=== PATIENT | female | born 1945 | race Caucasian/White ===

== ENCOUNTER → 2018-01-15 | Outpatient (CLI) | payer MEDICARE, MEDICAID ==
[~2018-01-15] MED LIST: ACET500T68 PO; CALC-547 PO; CALC1TAB24 PO; CELE-1 PO; CETY454C2 TP; CLO30T TOP; DEXL60CA6 PO; DOC100 PO; GUAI118L21 PO; LEVO100T95 PO; LOPE-147 PO; LOR5/325 PO; NAPR-1043 PO; OMEP-218 PO; POLPT TP; SALSP; [UNRECOGNIZED DRUG - CODE] TP
--- NOTE | 2018-01-15 11:05 | RADIOLOGY IMAGING REPORT ---
FACILITY: [facility] PATIENT NAME: Courtney Baker : 1945 MR: [id number] V: [id number] EXAM DATE: ORDERING PHYSICIAN: NNAMDI KIRKPATRICK TECHNOLOGIST: Location: [facility] [place] Patient: Courtney Baker : 1945 Visit/Account:[id number] Date of Sevice: 01/15/2018 Study: LUMBAR SPINE 4 VIEWS Indication: Pain Comparison study: October 01, 2016 Findings: AP bilateral oblique, lateral, and cone-down lateral views of the lumbosacral spine demonst rates the presence of mild loss of height of the L1 vertebral body. This is unchanged as compared to the previous study. There is no evidence of lytic or blastic bony lesions. There is mild degenerative disease present. There is no evidence of spondylolisthesis or spondylolysis. IMPRESSION: Mild degenerative disease. There is no evidence of acute bony abnormality. Report Dictated By: David Osorio at 01/15/2018 10:59 AM Report E-Signed By: David Osorio at 01/15/2018 11:00 AM WSN:[id number]
== END ==
LOC: RAD 09:42
PROVIDERS: ATTEND Nurse Practitioner Family
DX: M51.36 Other intervertebral disc degeneration, lumbar region (principal)
CPT/HCPCS: 72120

== ENCOUNTER → 2018-05-25 | Outpatient (CLI) | payer MEDICARE, MEDICAID ==
--- NOTE | 2018-05-25 15:13 | RADIOLOGY IMAGING REPORT ---
[place] [facility] [place] NAME: Courtney Baker : 1945 MR: [id number] V: [id number] EXAM DATE: ORDERING PHYSICIAN: ADAM MUNOZ TECHNOLOGIST: Location: [facility] Patient: Courtney Baker : 1945 Visit/Account:[id number] Date of Sevice: 05/25/2018 Exam type: CHEST PA AND LAT History: Choking when eating, cough Comparison: None. Findings: There is a moderate size hiatal hernia projecting in the retrocardiac space. Peribronchial thickenin g is noted in the lower lung ott. No evidence of pleural effusions or overt pulmonary edema. The cardiac silhouette is mildly enlarged IMPRESSION: 1. Moderate size hiatal hernia Peribronchial thickening in the lower lung ott. Different diagnosis would include both acute and chronic etiologies Mild cardiomegaly Report Dictated By: Becky Lane MD at 05/25/2018 3:05 PM Report E-Signed By: Becky Lane MD at 05/25/2018 3:08 PM WSN:[email or web address]
== END ==
LOC: RAD 10:32
PROVIDERS: ATTEND Nurse Practitioner Family
DX: K44.9 Diaphragmatic hernia without obstruction or gangrene (principal); R91.8 Other nonspecific abnormal finding of lung field; I51.7 Cardiomegaly
CPT/HCPCS: 71046

== ENCOUNTER → 2018-06-09 | Outpatient (CLI) | payer MEDICARE, MEDICAID ==
[~2018-06-09] MED LIST changes: +BARIUM SULFATE 148 GM POWDER ONE; +BARIUM SULFATE 240 ML ORAL SUS (NECTAR) ONE
--- NOTE | 2018-06-09 13:22 | RADIOLOGY IMAGING REPORT ---
FACILITY: [facility] PATIENT NAME: Courtney Baker : 1945 MR: [id number] V: [id number] EXAM DATE: ORDERING PHYSICIAN: ADAM MUNOZ TECHNOLOGIST: Location: [facility] Patient: Courtney Baker : 1945 Visit/Account:[id number] Date of Sevice: 06/09/2018 ESOPH VIDEO SWALLOWING EXAMINATION: Speech Pathology Evaluation of Swallowing Function HISTORY: Difficulty swallowing COMPARISON STUDIES: None FINDINGS: Fluoroscopy in the Radiology Department was provided for speech pathology to evaluate swallowing func tion. A radiologist was present during the fluoroscopic examination. Anatomical: There is no evidence of mass, web or stricture. Dixie hernia is noted. Aspiration: None Additional incidental: Mild to moderate oral dysphagia noted. Patient had difficulty transferring th e bolus from the front to back of the mouth. Patient was able to swallow a. Tablet which initially lodged in the piriform sinus but passed with swallowing liquids. Fluoroscopy time: 3.9 minutes DAP: 408.53, uGym2 IMPRESSION: No aspiration. Mild to moderate oral dysphagia. Please refer to the Speech Pathology report for additional information. Report Dictated By: Adriana Miranda MD at 06/09/2018 1:06 PM Report E-Signed By: Adriana Miranda MD at 06/09/2018 1:17 PM WSN:[email or web address]
--- NOTE | 2018-06-09 14:57 | SLP MODIFIED BARIUM SWALLOW ---
Speech Language Pathology Modified Barium Swallow Evaluation Report Date of Evaluation: 06-09-18 Patient Name: Courtney Baker Patient : 1945 Physician: AUNG Patino Clinician: Yolanda Rae M.S., CCC-JIVE DEVELOPER BACKGROUND The patient is a 72 yr old female. She lives in an [facility] long-term in [place]. She was referred for an MBS to assess swallow structure and function as indicated by s/s of possible dysphagia including coughing with meals. She has a hx of GERD and is currently taking medication for it. Oxygen Supplementation: No Level of Consciousness: Non altered Cognitive/Linguistic: cognitive deficits. Pt able to follow instructions as necessary to complete the assessment. Voice -Dysphonia: none -Nasal emission: not assessed. -Hypernasality: No -Wet Vocal Quality: No Pain with Swallow: Denies. MODIFIED BARIUM SWALLOW In conjunction with radiology, lateral view with trials of the following consistencies: thin barium liquid (noncarbonated), barium marked pureed, mechanical soft, and regular food consistencies, and a 1cm barium pill. ORAL STAGE Thin Liquids: no evidence of dysphagia . WNL Pureed Foods: no evidence of dysphagia . WNL Mechanical Soft Foods: reduced bolus control. Pt struggled to move bolus from anterior lingual position to base of tongue for swallow. Liquid wash cleared bolus. Regular Foods: reduced bolus control. Pt struggled to move bolus from anterior lingual position to base of tongue for swallow. Liquid wash cleared bolus. PHARYNGEAL STAGE Thin Liquid: no evidence of dysphagia WNL. Pureed Food: no evidence of dysphagia WNL. Mechanical Soft Foods: no evidence of dysphagia WNL. Regular Food Consistency: no evidence of dysphagia WNL. Barium Pill: Pill with thin liquids: Pt could not move full size pill to base of tongue for swallow. Pill removed from mouth Pill with purees: Pill passed easily through oral cavity however lodged in epiglottic vallecula. Cued 2nd swallow dislodged pill. Penetration/Aspiration Scale*: Thin liquid: Score of 1= Contrast does not enter airway Puree: Score of 1= Contrast does not enter airway Soft and regular solids: Score of 1= Contrast does not enter airway *(Dominick et al. 1996) ESOPHAGEAL STAGE Did not witness. Patient mobility/posture limited visualization of esophageal stage SUMMARY Aspiration Risk: Elevated d/t oral dysphagia with poor A-P transit of bolus from anterior/mid lingual position to base of tongue for swallow initiation. . No pharyngeal dysphagia witnessed. RECOMMENDATIONS 1. Liquid wash following all food swallows. One liquid swallow is sufficient. Independently the patient takes 4-5+ large swallows of liquid. She should be monitored to limit liquid wash swallows to 1-2 so she doesn't fill up on liquids and increase risk of malnutrition. 2. Small bites. 3. Wetter food will help the patient with bolus movement Thank you for this referral. Please call [phone] to contact the JIVE DEVELOPER. Yolanda Rae M.S., [facility]-JIVE DEVELOPER MTDD
== END ==
LOC: RAD 01:39
PROVIDERS: ATTEND Nurse Practitioner Family
DX: R13.11 Dysphagia, oral phase (principal); K44.9 Diaphragmatic hernia without obstruction or gangrene
CPT/HCPCS: 74230

== ENCOUNTER → 2018-07-09 | Outpatient (CLI) | payer MEDICARE, MEDICAID ==
[~2018-07-09] MED LIST changes: -BARIUM SULFATE 148 GM POWDER ONE; -BARIUM SULFATE 240 ML ORAL SUS (NECTAR) ONE
--- NOTE | 2018-07-09 12:50 | RADIOLOGY IMAGING REPORT ---
FACILITY: [facility] PATIENT NAME: SLOAN GONZALEZ : [id number] MR: [id number] V: [id number] EXAM DATE: ORDERING PHYSICIAN: NNAMDI KIRKPATRICK TECHNOLOGIST: Luisana Rincon PROCEDURE:BILATERAL DIGITAL SCREENING MAMMOGRAM WITH CAD ASSISTED INTERPRETATION COMPARISON:Prior mammograms 07/08/17, 07/07/16, 07/05/15, 07/04/14, 06/28/13, 06/23/12. INDICATIONS:screening FINDINGS: A small to moderate amount of fibroglandular tissue is seen throughout the breasts. The parenchymal pattern has remained stable allowing for difference in mammographic technique & patient positioning. There is no evidence of malignant appearing mass, malignant appearing calcifications or other secondary sign of malignancy in either breast. DIAGNOSTIC CATEGORY 1--NEGATIVE. RECOMMENDATIONS: ROUTINE MAMMOGRAM AND CLINICAL EVALUATION. IMPRESSION: BIRADS 1: Negative. No significant abnormality is seen. Dictated by: Becky Lane M.D. on 07/09/2018 at 11:31 Transcribed by: RK on 07/09/2018 at 11:44 Approved by: Becky Lane M.D. on 07/09/2018 at 12:49 [facility]
== END ==
LOC: MAMO 02:28
PROVIDERS: ATTEND Nurse Practitioner Family
DX: Z12.31 Encounter for screening mammogram for malignant neoplasm of breast (principal)
CPT/HCPCS: 77063; 77067

== ENCOUNTER 2019-03-22 08:30 | Outpatient (RCR) | payer MEDICARE, MEDICAID ==
--- NOTE | 2019-01-03 18:15 | PT INITIAL EVALUATION ---
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 She received PT at the [facility] in [place] over the last three years, but that contract has lapsed. Michelle is happy to resume PT. She fell 01/01/19 in the bathroom at [facility] because she didn't turn fully before sitting. She makes her own coffee, does supervised ambulation in the community, but doesn't use her 4WW in her apartment. Pain location is L>R lateral hip and joint and described as ache. Pain scale is 4 on a ten point pain scale. Pain is worse with awakening in the morning, walking, sitting too long and better with stretching, moving. REHAB PROBLEM LIST: Impaired Cognition Decreased ROM Decreased Strength Impaired Transfers Decreased Balance Decreased Mobility Decreased Gait PREVIOUS MEDICAL HISTORY: Thyroid disease, developmental disability, R sided CP. OCCUPATION: [facility] resident, likes to do art, ambulate with 4WW short distances. OBJECTIVE: Posture: R hinged AFO, R resting wrist and MTP splint. ROM: L hip PROM 110 deg. flexion, IR 30 deg., ER 40 deg. tightness pain, abd./add. WNL/WNL. Strength: Michelle doesn't provide muscle resistance (cognition, but sit<>stand with increased trunk flexion, full bridge (gluts), clamshells with green theraband with moderate resistance. Palpation: Painful, tight L TFL, piriform is, gluts. Special Tests: Negative SLR, B for paresthesia or pain. R LE modified Jairo scale 2/4, UE 3/4 wrist Mobility: Turns almost fully to sit, uses UE's with chair appropriately. Gait: 4WW, longer R LE (AFO), hard landing wtih L foot, mild trunk lean B. Balance: Double limb support. 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 ASSESSMENT: Courtney "Michelle" [place] presents with fall risk, reduced functional mobility in turning, L hip pain and tightness, B LE weakness and altered gait. She's an excellent candidate to work safe functional mobility, improve gait, reduced hip pain and tightness. She had no pain after hip stretching and strengthening, ambulation. Short Term Goals/Patient's Goals Monthly: Michelle maintains postural control, strength and endurance for community ambulation, safe functional mobility. PLAN: Patient to be seen for Manual Therapy Strengthening/condition Ice/Heat Range of Motion Stretching Neuromuscular Re-ed Electrical Stim Gait Trg/Balance Trg 1x/Week for 2018 Thank you for this referral. If you have any questions, comments, or concerns about this report or plan, please contact me at . [facility]
== END 2019-04-03 ==
LOC: PT 08:30
PROVIDERS: ATTEND Nurse Practitioner Family
DX: M25.552 Pain in left hip (principal); M13.852 Other specified arthritis, left hip; G80.4 Ataxic cerebral palsy; G80.1 Spastic diplegic cerebral palsy; R25.2 Cramp and spasm
CPT/HCPCS: 97162

== ENCOUNTER → 2019-03-29 | Outpatient (CLI) | payer MEDICARE, MEDICAID ==
--- NOTE | 2019-03-29 14:11 | RADIOLOGY IMAGING REPORT ---
FACILITY: [facility] - [place] PATIENT NAME: Courtney Baker : 1945 MR: [id number] V: [id number] EXAM DATE: ORDERING PHYSICIAN: NNAMDI KIRKPATRICK TECHNOLOGIST: Location: [facility] [place] Patient: Courtney Baker : 1945 Visit/Account:[id number] Date of Sevice: 03/29/2019 CHEST PA LAT History: Cough and shortness of breath. Nonsmoker. FINDINGS: Comparison studies: Chest x-ray 05/25/2018 Tubes and Lines: None. Lungs and pleura: There is poor inspiratory effort with hypoinflation. Allowing for this, no defin ite focal pulmonary consolidation is seen. No evidence of effusions. Mediastinum: normal. Cardiac silhouette: Double density behind the heart again noted compatible with moderate sized hiatal hernia which is unchanged. Osseous structures: Unremarkable for age . IMPRESSION: Moderate hiatal hernia again noted. No acute cardiopulmonary pathology identified. Report Dictated By: Perez Johnson MD at 03/29/2019 2:05 PM Report E-Signed By: Perez Johnson MD at 03/29/2019 2:08 PM WSN:KARINA
== END ==
LOC: RAD 13:24
PROVIDERS: ATTEND Nurse Practitioner Family
DX: K44.9 Diaphragmatic hernia without obstruction or gangrene (principal)
CPT/HCPCS: 71046

== ENCOUNTER → 2019-04-01 | Outpatient (CLI) | payer MEDICARE, MEDICAID ==
--- NOTE | 2019-04-01 14:45 | RADIOLOGY IMAGING REPORT ---
FACILITY: [facility] [place] PATIENT NAME: Courtney Baker : 1945 MR: [id number] V: [id number] EXAM DATE: ORDERING PHYSICIAN: NNAMDI KIRKPATRICK TECHNOLOGIST: Location: [facility] [place] Patient: Courtney Baker : 1945 Visit/Account:[id number] Date of Sevice: 04/01/2019 MR SHOULDER RT W/O CONTRAST INDICATIONS: Fall with right shoulder pain. DATE: 04/01/2019 1:18 PM TECHNIQUE: Multisequence multiplanar noncontrast MR imaging was performed of the right shoulder. COMPARISON: None available FINDINGS: ROTATOR CUFF: Susceptibility artifact at the lateral margin of the humeral head is presumably from pr ior surgery. The rotator cuff appears grossly intact with some bursal and articular sided fraying of the supraspinatus but no definite full-thickness tear or perforation. There is mild fatty infiltratio n of the rotator cuff musculature. BICEPS LABRAL COMPLEX: The long head biceps tendon is within the bicipital groove. On some sequences, the intracapsular course is poorly defined. OSSEOUS STRUCTURE: No fracture. MISCELLANEOUS: No glenohumeral effusion. Trace fluid in the subacromial subdeltoid bursa. IMPRESSION: 1. Focal susceptibility artifact at the lateral aspect of the humeral head may be from prior surgery. There is both bursal and articular sided fraying of the supraspinatus footprint, but no definite ful l-thickness tear or perforation. 2. No fracture. 3. Small volume of fluid in the subacromial subdeltoid bursa could reflect mild bursitis in the absen ce of a full-thickness rotator cuff tear. Report Dictated By: Liseth Angeles MD at 04/01/2019 2:27 PM Report E-Signed By: Liseth Angeles MD at 04/01/2019 2:40 PM WSN:[email or web address]
== END ==
LOC: MRI 12:42
PROVIDERS: ATTEND Nurse Practitioner Family
DX: M75.51 Bursitis of right shoulder (principal)

== ENCOUNTER 2019-06-07 08:30 | Outpatient (RCR) | payer MEDICARE, MEDICAID ==
--- NOTE | 2019-04-05 13:14 | PT PLAN OF CARE ---
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 progressing Patient Compliance: Excellent Prognosis: Excellent Reasons for continuing therapy: O: ROM: L hip PROM 102-105 deg. flexion. Gait: 4WW with R fore foot scuffing from weak R hip flexors, feet almost pass each other. Special Tests: R LE modified Jairo scale biceps 1/4 R, 0/4 L, hamstrings R 1+/4, L 1/4 Mobility: Turns fully to sit, uses UE's with chair appropriately. A/P: Courtney Baker has tighter hips, but is doing well with tone and mobility. If you agree, we'll continue 1x/2 weeks to goals set. Thank you. AUNG Patino date MTDD
--- NOTE | 2019-06-07 09:55 | PT PLAN OF CARE ---
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 met Patient Compliance: Excellent Prognosis: Excellent Reasons for discontinuing therapy: S: Michelle's aide reports her house staff are working with her on supervised HEP. She fell at [place] 06/02/19 and reports intermittent L LBP, otherwise no falls. O: ROM: L hip PROM 115 deg. flexion, IR 30 deg., ER 40 degrees. L knee, hip PROM pain free. Lumbar AROM flexion 50%, more LBP, extension 50% reduces LBP. Strength: Sit/stand with eccentric quad control now. Palpation: Unremarkable in the L-S, L hip and knee region. Special Tests: R hamstrings modified Jairo scale improved to 1/4, R biceps remains 1/4. 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 Mobility: Turns fully to sit, no UE use with sit/stand, immediate standing balance WNL. A/P: Courtney Baker has improved tone, is more aware of her gait and has improved L quad strength. I'll DC PT to [facility] supervised HEP. Thank you. MADAN
== END 2019-06-07 18:00 | disposition home or self-care (01) ==
LOC: PT 08:30
PROVIDERS: ATTEND Nurse Practitioner Family
DX: M25.552 Pain in left hip (principal); M13.852 Other specified arthritis, left hip; G80.4 Ataxic cerebral palsy; G80.1 Spastic diplegic cerebral palsy; R25.2 Cramp and spasm; M25.50 Pain in unspecified joint

== ENCOUNTER → 2019-07-21 | Outpatient (CLI) | payer MEDICARE, MEDICAID ==
--- NOTE | 2019-07-22 11:16 | RADIOLOGY IMAGING REPORT ---
FACILITY: [facility] PATIENT NAME: SLOAN GONZALEZ : [id number] MR: [id number] V: [id number] EXAM DATE: [id number] ORDERING PHYSICIAN: NNAMDI KIRKPATRICK TECHNOLOGIST: Luisana Rincon PROCEDURE: BILATERAL DIGITAL SCREENING MAMMOGRAM WITH CAD REASON FOR STUDY: Screening FAMILY HISTORY OF BREAST CANCER: BREAST PROCEDURES/TREATMENTS: COMPARISON: 07/09/2018, 07/08/17, 07/07/16 VIEWS OBTAINED: Bilateral CC & XCCL 2D views of both breasts were performed. MLO views could not be performed as the patient is handicapped & these are the best obtainable images. BREAST DENSITY: Scattered fibroglandular densities. MAMMOGRAM FINDINGS: There are no mammographic findings concerning for malignancy. No significant interval change from prior exam. FINDINGS: DIAGNOSTIC CATEGORY 1--NEGATIVE. RECOMMENDATIONS: ROUTINE MAMMOGRAM IN 1 YEAR AND CLINICAL EVALUATION. IMPRESSION: BIRADS 1: Negative. Dictated by: Max Benson M.D. on 07/22/2019 at 9:16 Transcribed by: MALACHI on 07/22/2019 at 10:33 Approved by: Max Benson M.D. on 07/22/2019 at 11:10 [facility]
== END ==
LOC: MAMO 03:48
PROVIDERS: ATTEND Nurse Practitioner Family
DX: Z12.31 Encounter for screening mammogram for malignant neoplasm of breast (principal)
CPT/HCPCS: 77063; 77067